=== PATIENT | female | born 1980 | race Two or more races ===

== ENCOUNTER 2018-10-30 15:50 | Emergency (ER) | payer MEDICAID, OTHER ==
[~2018-10-30] VITALS: Ht 162.6 cm; Wt 65.8 kg
[~2018-10-30 15:50] MED LIST: BENADRYL25 MG ORAL; IBUPROFEN600 MG ORAL; NORCO 5-325 TA1 EACH ORAL; TYLENOL EX500 MG/15 ORAL
[2018-10-30 16:00] VITALS: BP 123/72
[2018-10-30 16:54] LABS: APPEARANCE,URINE SLIGHTLY CLOUDY; BILIRUBIN, URINE NEGATIVE (NEGATIVE); COLOR,URINE PALE YELLOW; GLUCOSE, URINE (UA) NEGATIVE (NEGATIVE); KETONES,URINE NEGATIVE (NEGATIVE); LEUKOCYTE ESTERASE ,URINE NEGATIVE (NEGATIVE); NITRITE,URINE NEGATIVE (NEGATIVE); PH,URINE 8 (4.5-8.0); PROTEIN,URINE NEGATIVE (NEGATIVE); UROBILINOGEN,URINE NORMAL MG/DL (0.0-1.0)
[2018-10-30 16:55] LABS: BASOPHILS % (AUTO) 1.1 % (0.0-2.0); EOSINOPHILS % (AUTO) 2.4 % (0.0-3.0); HEMATOCRIT 37.7 % (37.0-47.0); HEMOGLOBIN 12.8 G/DL (12.0-16.0); LYMPHOCYTES % (AUTO) 17.7 % (20.0-45.0); MEAN CORPUSCULAR VOLUME 87 FL (80-99); MONOCYTES % (AUTO) 7.1 % (1.0-10.0); NEUTROPHILS % (AUTO) 71.7 % (45.0-75.0); PLATELET COUNT 211 K/UL (150-450); RED BLOOD COUNT 4.32 M/UL (4.20-5.40); RED CELL DISTRIBUTION WIDTH 11.6 % (11.6-14.8)
[2018-10-30 16:57] LABS: ANION GAP 9 mmol/L (5-15); BLOOD UREA NITROGEN 12 mg/dL (7-18); CALCIUM 8.8 MG/DL (8.5-10.1); CARBON DIOXIDE 26 MMOL/L (21-32); CHLORIDE 103 MMOL/L (98-107); CREATININE 0.6 MG/DL (0.55-1.30); SODIUM 138 MMOL/L (136-145)
[2018-10-30 17:01] LABS: ALANINE AMINOTRANSFERASE 19 U/L (12-78); ALBUMIN 3.5 G/DL (3.4-5.0); ALBUMIN/GLOBULIN RATIO 0.8 (1.0-2.7); ALKALINE PHOSPHATASE 106 U/L (46-116); ASPARTATE AMINO TRANSFERASE 14 U/L (15-37); BILIRUBIN,TOTAL 0.3 MG/DL (0.2-1.0)
[2018-10-30] MEDS ORDERED: NITROFURANTOIN100 M2 ORAL (17:21)
[2018-10-30] MEDS ORDERED: TYLENOL EXTRA500 MG ORAL (17:21)
--- NOTE | 2018-10-30 17:21 | Emergency Room Report ---
History of Present Illness General Chief Complaint: Abdominal Pain Source: Patient Present Illness HPI 38 YO Female presents to the ED c/o Right adnexal pain, intermittent and sharp, resolved spontaneously, denies hematuria or dysuria, reports urinary frequency x 3 days. Denies fevers or chills. appendix is surgically absent. Denies constipation, nausea/ vomiting, blood in the urine, vomit or stool, denies tenderness to the abdomen. Pt. describes pain episode R D INTERN of 10 out of 10 in severity pain in the right lower quadrant. States pain has occurred intermittently 3 times since 4am this morning. Patient reports that she had her appendix removed many years ago. Patient states she has had a history of ovarian cysts. Patient states that the pain is typically more constant when she has an aggravated ovarian cyst. Patient denies vaginal bleeding, discharge, hematuria, urinary urgency. Patient states the pain does not migrate or radiate. Patient denies . Pt. states that her symptoms have resolved upon arrival. Denies history of urinary stones. Allergies: Coded Allergies: No Known Allergies (Unverified , 01/02/14) Patient History Past Medical History: see triage record Past Surgical History: none Pertinent Family History: none Now: No Immunizations: UTD Reviewed Nursing Documentation: PMH: Agreed; PSxH: Agreed Nursing Documentation-PMH Past Medical History: No History, Except For Hx Neurological Problems: No - 2013 Review of Systems All Other Systems: negative except mentioned in HPI Physical Exam Vital Signs Date Time Temp Pulse Resp B/P (MAP) Pulse Ox O2 Delivery O2 Flow Rate FiO2 10/30/18 15:58 98.2 100 18 123/72 96 Room Air Sp02 EP Interpretation: reviewed, normal General Appearance: no apparent distress, alert, GCS 15, non-toxic Head: normocephalic, atraumatic Eyes: bilateral eye normal inspection, bilateral eye PERRL ENT: hearing grossly normal, normal voice Neck: full range of motion Respiratory: lungs clear, normal breath sounds, speaking full sentences Cardiovascular #1: regular rate, rhythm Gastrointestinal: normal bowel sounds, non tender, soft, non-distended, no guarding Genitourinary: normal inspection, no CVA tenderness, adnexa normal Musculoskeletal: back normal, gait/station normal, normal range of motion, non- tender Neurologic: alert, oriented x3, responsive, motor strength/tone normal, sensory intact, normal gait, speech normal, grossly normal Psychiatric: judgement/insight normal Skin: normal color, no rash, warm/dry, well hydrated Lymphatic: no adenopathy Medical Decision Making PA Attestation Dr. Harry is my supervising physician whom pt. management has been discussed with. Diagnostic Impression: Primary Impression: UTI (urinary tract infection) Qualified Codes: N30.00 - Acute cystitis without hematuria ER Course 38 YO Female presents to the ED c/o Right adnexal pain, intermittent and sharp, resolved spontaneously, denies hematuria or dysuria, reports urinary frequency x 3 days. Denies fevers or chills. appendix is surgically absent. Denies constipation, nausea/ vomiting, blood in the urine, vomit or stool, denies tenderness to the abdomen. Pt. describes pain episode R D INTERN of 10 out of 10 in severity pain in the right lower quadrant. States pain has occurred intermittently 3 times since 4am this morning. Patient reports that she had her appendix removed many years ago. Patient states she has had a history of ovarian cysts. Patient states that the pain is typically more constant when she has an aggravated ovarian cyst. Patient denies vaginal bleeding, discharge, hematuria, urinary urgency. Patient states the pain does not migrate or radiate. Patient denies . Pt. states that her symptoms have resolved upon arrival. Denies history of urinary stones. PT. not currently having pain, her pain has resolved spontaneously. Ddx considered but are not limited to Diverticulitis, acute appy, ovarian torsion, ectopic , PID tubo-ovarian abscess, ovarian cyst. Vital signs: are WNL, pt. is afebrile H&PE are most consistent with possible ovarian cyst, however due to presentation will r/o torsion, ectopic, and stone. ORDERS: -CBC, CMP, LIPASE: unremarkable -UA: Negative of infection. -URINE HCG:Negative ED INTERVENTIONS: - 1 Liter NS I d/w patient the results of her laboratory findings. As she still does not have any pain or tenderness during her ED visit I do not feel that ultrasound imaging is required at this time and that she is stable for outpatient follow- up and imaging as needed and a nonemergent setting. -I do not identify an emergent condition at this time. With current presentation , pt. is stable for close outpatient follow up and conservative treatment. D/ w pt. to return promptly to ED with worsening or new symptoms.- Pt. verbalizes' understanding and agreement with proposed treatment plan. DISCHARGE: At this time pt. is stable for d/c to home. Will provide printed patient care instructions, and any necessary prescriptions. Care plan and follow up instructions have been discussed with the patient prior to discharge. Labs Test 10/30/18 16:30 White Blood Count 8.0 K/UL (4.8-10.8) Red Blood Count 4.32 M/UL (4.20-5.40) Hemoglobin 12.8 G/DL (12.0-16.0) Hematocrit 37.7 % (37.0-47.0) Mean Corpuscular Volume 87 FL (80-99) Mean Corpuscular Hemoglobin 29.7 PG (27.0-31.0) Mean Corpuscular Hemoglobin Concent 34.1 G/DL (32.0-36.0) Red Cell Distribution Width 11.6 % (11.6-14.8) Platelet Count 211 K/UL (150-450) Mean Platelet Volume 6.9 FL (6.5-10.1) Neutrophils (%) (Auto) 71.7 % (45.0-75.0) Lymphocytes (%) (Auto) 17.7 % (20.0-45.0) Monocytes (%) (Auto) 7.1 % (1.0-10.0) Eosinophils (%) (Auto) 2.4 % (0.0-3.0) Basophils (%) (Auto) 1.1 % (0.0-2.0) Urine Color Pale yellow Urine Appearance Slightly cloudy Urine pH 8 (4.5-8.0) Urine Specific [place] 1.010 (1.005-1.035) Urine Protein Negative (NEGATIVE) Urine Glucose (UA) Negative (NEGATIVE) Urine Ketones Negative (NEGATIVE) Urine Blood Negative (NEGATIVE) Urine Nitrite Negative (NEGATIVE) Urine Bilirubin Negative (NEGATIVE) Urine Urobilinogen Normal MG/DL (0.0-1.0) Urine Leukocyte Esterase Negative (NEGATIVE) Urine RBC 0-2 /HPF (0 - 2) Urine WBC 0-2 /HPF (0 - 2) Urine Squamous Epithelial Cells Few /LPF (NONE/OCC) Urine Amorphous Sediment Many /LPF (NONE) Urine Bacteria Moderate /HPF (NONE) Urine HCG, Qualitative Negative (NEGATIVE) Sodium Level 138 MMOL/L (136-145) Potassium Level 4.0 MMOL/L (3.5-5.1) Chloride Level 103 MMOL/L (98-107) Carbon Dioxide Level 26 MMOL/L (21-32) Anion Gap 9 mmol/L (5-15) Blood Urea Nitrogen 12 mg/dL (7-18) Creatinine 0.6 MG/DL (0.55-1.30) Estimat Glomerular Filtration Rate > 60 mL/min (>60) Glucose Level 117 MG/DL (74-106) Calcium Level 8.8 MG/DL (8.5-10.1) Total Bilirubin 0.3 MG/DL (0.2-1.0) Aspartate Amino Transf (AST/SGOT) 14 U/L (15-37) Alanine Aminotransferase (ALT/SGPT) 19 U/L (12-78) Alkaline Phosphatase 106 U/L (46-116) Total Protein 7.8 G/DL (6.4-8.2) Albumin 3.5 G/DL (3.4-5.0) Globulin 4.3 g/dL Albumin/Globulin Ratio 0.8 (1.0-2.7) Lipase 209 U/L (73-393) Last Vital Signs Date Time Temp Pulse Resp B/P (MAP) Pulse Ox O2 Delivery O2 Flow Rate FiO2 10/30/18 16:00 98.2 100 18 123/72 96 Room Air Disposition: HOME, SELF-CARE Condition: Stable Scripts Acetaminophen* (TYLENOL EXTRA STRENGTH*) 500 Mg Tablet 500 MG ORAL Q6H, #20 TAB 0 Refills Prov: Jazzmine Melendez 10/30/18 Nitrofurantoin Monohyd/M-Cryst* (MACROBID 100 MG*) 100 Mg Capsule 100 MG ORAL EVERY 12 HOURS for 5 Days, #10 CAP Prov: Jazzmine Melendez 10/30/18 Patient Instructions: Urinary Tract Infection, [id number] Additional Instructions: Take medications as directed. Follow up with a Primary Care Provider in 3-5 days, even if your symptoms have resolved. --Please review list of primary care clinics, if you do not already have a primary care provider Return sooner to ED if new symptoms occur, or current symptoms become worse. - Please note that this Emergency Department Report was dictated using Dragon counter pocket trimmer technology software, occasionally this can lead to erroneous entry secondary to interpretation by the dictation equipment. Jazzmine Melendez Oct 30, 2018 17:21
[2018-10-30 17:37] VITALS: BP 128/74
== END 2018-10-30 17:37 | disposition home or self-care (01) ==
LOC: EMR 17:23
DX: N30.00 Acute cystitis without hematuria (principal)
CPT/HCPCS: 36415; 80053; 81003; 81025; 83690; 85025; 87086; 96360; 99284

== ENCOUNTER 2019-08-26 15:06 | Emergency (ER) | payer MEDICAID, OTHER ==
[~2019-08-26] VITALS: Ht 162.6 cm; Wt 68.0 kg
[~2019-08-26 15:06] MED LIST changes: +NITROFURANTOIN100 M2 ORAL; +TYLENOL EXTRA500 MG ORAL
[2019-08-26] MEDS ORDERED: OMEPRAZOLE20 M3 ORAL ×2 (15:25→17:03)
--- NOTE | 2019-08-26 15:29 | NUR ---
ED Nurse Note: Pt came in due to upper abd pain with dizziness and headache that started on saturday. Denies N/V. Pt state sthat she experiences abd pain after eating and that she feels bloated. No blood on her stools. AAO x4 and ambulatory.
[2019-08-26 15:35] VITALS: BP 112/75
--- NOTE | 2019-08-26 15:50 | NUR ---
ED Nurse Note: Ismael [employer]ron[employer] technologist at the bed side for CXR.
--- NOTE | 2019-08-26 16:04 | NUR ---
ED Nurse Note: US staff Anamaria at the bed side.
[2019-08-26 16:21] LABS: APPEARANCE,URINE CLEAR; BASOPHILS % (AUTO) 1.3 % (0.0-2.0); BILIRUBIN, URINE NEGATIVE (NEGATIVE); COLOR,URINE PALE YELLOW; EOSINOPHILS % (AUTO) 1.8 % (0.0-3.0); GLUCOSE, URINE (UA) NEGATIVE (NEGATIVE); HEMATOCRIT 41.6 % (37.0-47.0); HEMOGLOBIN 13.5 G/DL (12.0-16.0); KETONES,URINE NEGATIVE (NEGATIVE); LEUKOCYTE ESTERASE ,URINE NEGATIVE (NEGATIVE); LYMPHOCYTES % (AUTO) 33.2 % (20.0-45.0); MEAN CORPUSCULAR VOLUME 93 FL (80-99); MONOCYTES % (AUTO) 6.1 % (1.0-10.0); NEUTROPHILS % (AUTO) 57.7 % (45.0-75.0); NITRITE,URINE NEGATIVE (NEGATIVE); PH,URINE 7 (4.5-8.0); PLATELET COUNT 227 K/UL (150-450); PROTEIN,URINE NEGATIVE (NEGATIVE); RED CELL DISTRIBUTION WIDTH 11.1 % (11.6-14.8); UROBILINOGEN,URINE NORMAL MG/DL (0.0-1.0); WHITE BLOOD COUNT 8.2 K/UL (4.8-10.8)
[2019-08-26 16:32] LABS: INR 0.9 (0.9-1.1)
[2019-08-26 16:38] LABS: ANION GAP 8 mmol/L (5-15); BLOOD UREA NITROGEN 11 mg/dL (7-18); CALCIUM 9.1 MG/DL (8.5-10.1); CARBON DIOXIDE 29 MMOL/L (21-32); CHLORIDE 104 MMOL/L (98-107); CREATININE 0.7 MG/DL (0.55-1.30); SODIUM 141 MMOL/L (136-145)
[2019-08-26 16:44] LABS: ALANINE AMINOTRANSFERASE 23 U/L (12-78); ALBUMIN 3.9 G/DL (3.4-5.0); ALKALINE PHOSPHATASE 111 U/L (46-116); ASPARTATE AMINO TRANSFERASE 14 U/L (15-37); BILIRUBIN,TOTAL 0.4 MG/DL (0.2-1.0)
--- NOTE | 2019-08-26 16:51 | Diagnostic Imaging Report ---
Indication: Abdominal pain Technique: Moreno-scale and duplex images of the upper abdomen were obtained Comparison: none Findings: Gallbladder is unremarkable, without stones, wall thickening, nor pericholecystic fluid. Sonographic Stone's sign is negative. Common bile duct measures 2 mm in diameter. No intrahepatic biliary ductal dilatation. Liver demonstrates normal echogenicity, no focal abnormality. Portal vein and hepatic veins are patent. Pancreas is unremarkable. Spleen is unremarkable. Left kidney measures 11.3 cm in length. Right kidney measures 7.1 cm length. Both kidneys demonstrate normal echogenicity. There is no hydronephrosis. No focal abnormality . Non-aneurysmal abdominal aorta . Impression: Negative
--- NOTE | 2019-08-26 16:59 | Emergency Room Report ---
History of Present Illness General Chief Complaint: Abdominal Pain Source: Patient Present Illness HPI 39-year-old female with history of gastritis here complaining of pain and swelling in epigastric and right and left upper quadrants for the past few days. Patient reports that she stopped eating spicy and acidic food long time ago. Takes daily dose of omeprazole. Denies any recent travel. Denies tobacco smoke, diarrhea, vomiting however complains of minimal nausea. Denies blood in her stool. Denies having abnormal bowel movements. Denies fever and chills, chest pain, shortness of breath, palpitation, no other associated symptoms. Patient reports that she drinks enough water. Reports that the pain is 10 out of 10 about 10 to 15 minutes after eating however denies any pain prior to eating. Reports of minimal bloating. Feeling flatulence. Denies eating street food. Patient guards when touched on the epigastric area as well as right and left upper quadrants. Denies abdominal surgeries in the past. Allergies: Coded Allergies: No Known Allergies (Unverified , 01/02/14) Patient History Past Medical History: see triage record Past Surgical History: unable to obtain Pertinent Family History: none Last Menstrual Period: 08/21/19 Now: No Immunizations: UTD Reviewed Nursing Documentation: PMH: Agreed; PSxH: Agreed Nursing Documentation-PMH Past Medical History: No Stated History Hx Neurological Problems: No - 2013 Review of Systems All Other Systems: negative except mentioned in HPI Physical Exam Vital Signs Date Time Temp Pulse Resp B/P (MAP) Pulse Ox O2 Delivery O2 Flow Rate FiO2 08/26/19 15:19 98.1 62 17 107/69 (82) 99 Room Air Sp02 EP Interpretation: reviewed, normal General Appearance: no apparent distress, alert, GCS 15, non-toxic Head: normocephalic, atraumatic Eyes: bilateral eye normal inspection, bilateral eye PERRL ENT: hearing grossly normal, normal pharynx, no angioedema, normal voice Neck: full range of motion, supple/symm/no masses Respiratory: chest non-tender, lungs clear, normal breath sounds, no rhonchi, speaking full sentences Cardiovascular #1: regular rate, rhythm, no edema, no murmur Gastrointestinal: non tender, no mass, no organomegaly, no peritonitis, no bruit, non-distended, guarding - epigastric/RUQ and RLQ pain, other - neg mcburnys, rovsings, murphys Genitourinary: no CVA tenderness Musculoskeletal: back normal, gait/station normal, normal range of motion, non- tender, no calf tenderness Neurologic: alert, oriented x3, responsive, motor strength/tone normal, sensory intact, speech normal Psychiatric: judgement/insight normal, memory normal, mood/affect normal, no suicidal/homicidal ideation Skin: no rash Lymphatic: no adenopathy Medical Decision Making PA Attestation All diagnoses and treatment plans were reviewed and discussed with my supervising physician Dr. Sahu Diagnostic Impression: Primary Impression: Gastritis ER Course 39-year-old female with history of gastritis here complaining of pain and swelling in epigastric and right and left upper quadrants for the past few days. Patient reports that she stopped eating spicy and acidic food long time ago. Takes daily dose of omeprazole. Denies any recent travel. Denies tobacco smoke, diarrhea, vomiting however complains of minimal nausea. Denies blood in her stool. Denies having abnormal bowel movements. Denies fever and chills, chest pain, shortness of breath, palpitation, no other associated symptoms. Patient reports that she drinks enough water. Reports that the pain is 10 out of 10 about 10 to 15 minutes after eating however denies any pain prior to eating. Reports of minimal bloating. Feeling flatulence. Denies eating street food. Patient guards when touched on the epigastric area as well as right and left upper quadrants. Denies abdominal surgeries in the past. Ddx considered but are not limited to: appendicitis, cholecystis, gastritis, gastroenteritis, UTI, pyelonephritis, SBO, diverticulitis, influenza with GI manifestation, AL, complication with , gastritis, gastric ulcer Vital signs: are WNL, pt. is afebrile H&PE are most consistent with: Gastritis and possible gastric ulcer ORDERS: abdominal pain set, EKG, abdominal US. Omeprazole, Zofran ED INTERVENTIONS: Zofran, Pepcid, NS bolus DISCHARGE: At this time pt. is stable for d/c to home. Will provide printed patient care instructions, and any necessary prescriptions. Care plan and follow up instructions have been discussed with the patient prior to discharge. Take medication as directed I advised the patient to follow-up with truck driver instructor for possible endoscopy as she may be having a gastric ulcer also be tested for H. pylori bacteria. If worsening symptoms return to the emergency room. Take Tylenol for pain not ibuprofen. Avoid spicy and acidic food. EKG Diagnostic Results Rate: bradycardiac Rhythm: NSR ST Segments: no acute changes Other Impression No acute ST changes CT/MRI/US Diagnostic Results CT/MRI/US Diagnostic Results : Imaging Test Ordered: Abdominal ultrasound Impression Within normal limits Last Vital Signs Date Time Temp Pulse Resp B/P (MAP) Pulse Ox O2 Delivery O2 Flow Rate FiO2 08/26/19 15:35 98.4 86 17 112/75 100 Room Air Disposition: HOME, SELF-CARE Condition: Stable Scripts Omeprazole (OMEPRAZOLE) 20 Mg Tablet.dr 20 MG ORAL DAILY, #30 TAB Prov: Yasmine Servin 08/26/19 Ondansetron (Zofran) 4 Mg Tablet 4 MG ORAL Q6H PRN for Nausea & Vomiting, #10 TAB Prov: Yasmine Servin 08/26/19 Referrals: NON PHYSICIAN (PCP) Patient Instructions: Gastritis, Adult Additional Instructions: Follow-up with your primary care provider for referral to truck driver instructor and also doing an endoscopy you may have gastric ulcer also I highly recommend that your primary doctor test you for H. pylori bacteria as may be the cause of your pain. Yasmine Servin Aug 26, 2019 16:59
[2019-08-26] MEDS ORDERED: ZOFRAN4 M1 ORAL (17:02)
--- NOTE | 2019-08-26 17:20 | NUR ---
ED Nurse Note: RN unable to draw blood from IV access. Called lab for blood draw.
[2019-08-26 17:40] VITALS: BP 125/86
--- NOTE | 2019-08-26 17:40 | NUR ---
ER DISCHARGE NOTE: Patient is cleared to be discharged per PA, pt is aox4, on room air, with stable vital signs. pt was given dc and prescription instructions, pt was able to verbalize understanding, pt id band and iv site removed without complications. pt is able to ambulate with steady gait. pt took all belongings.
--- NOTE | 2019-08-26 17:54 | Diagnostic Imaging Report ---
Indication: Chest pain Technique: One view of the chest Comparison: none Findings: Lungs and pleural spaces are clear. Heart size is normal. Impression: No acute process
== END 2019-08-26 17:40 | disposition home or self-care (01) ==
LOC: EMR 16:10
DX: K29.70 Gastritis, unspecified, without bleeding (principal)
CPT/HCPCS: 36415; 71045; 76700; 80053; 80329; 81003; 81025; 83690; 84484; 85025; 85610; 85730; 86850; 86900; 86901; 93005; 96361; 96374; 96375; J2405; S0028; Z7502; 99284